=== PATIENT | male | born 1960 | race Caucasian/White ===

== ENCOUNTER 2018-04-20 00:08 | Emergency (ER) | payer BC ==
[~2018-04-20] VITALS: Ht 165.1 cm; Wt 87.9 kg
[~2018-04-20 00:08] MED LIST: MOTRIN600 MG PO; NORCO 5/3251 TABLET PO; ZOFRAN ODT4 MG PO
[2018-04-20] MEDS ORDERED: MOTRIN800 MG PO (01:38)
[2018-04-20] MEDS ORDERED: ULTRAM50 MG PO (01:38)
[2018-04-20 01:55] VITALS: BP 117/89
== END 2018-04-20 01:58 | disposition home or self-care (01) ==
LOC: EME 00:08
PROC: 2W3MX1Z Immobilization of Left Lower Extremity using Splint (ICD-10-PCS; principal; 2018-04-20)
DX: M25.562 Pain in left knee (principal); M25.462 Effusion, left knee; X50.1XXA Overexertion from prolonged static or awkward postures, initial encounter; Y93.79 Activity, other specified sports and athletics
CPT/HCPCS: 73564; 99281; 99284